=== PATIENT | male | born 1995 | race Caucasian/White ===

== ENCOUNTER 2016-05-21 00:14 | Emergency (ER) | payer BC, MEDICAID ==
[2016-05-21 00:24] VITALS: BP 133/94
--- NOTE | 2016-05-21 00:41 | ERNOTE ---
Medical Problem HPI - Narrative Date of Service: 05/21/16 - General Chief Complaint: General Assessment Time Seen by Provider: 05/21/16 00:30 Source: patient Exam Limitations: no limitations - Immun/Allergies/Home Medications Immunizations: IMMUNIZATION HX Immunizations Up to Date Yes History of Influenza Vaccine No Allergies/Adverse Reactions: Allergies cefaclor [From Ceclor] Allergy (Severe, Verified 05/21/16 00:24) Hives Home Medications: HOME MEDICATIONS Ibuprofen [Motrin] 800 mg PO TID PRN 06/21/13 [Last Taken 06/21/13] Amox Tr/Potassium Clavulanate [Augmentin 875-125 Tablet] 875 mg PO Q12H #20 tab 05/21/16 [Last Taken Unknown] - History of Present History Narrative: 20-year-old male complains of a painful lump in his right groin for the past 2 days. He does a lot of heavy lifting at work. No history of hernias. Denies urinary urgency frequency dysuria or urethral discharge. Review of Systems - Review of Systems Constitutional: Present: no symptoms reported EYE: Present: no symptoms reported ENT: Present: no symptoms reported Respiratory: Present: no symptoms reported Cardiology: Present: no symptoms reported Gastrointestinal/Abdominal: Present: no symptoms reported Genitourinary: Present: See HPI Musculoskeletal: Present: no symptoms reported Skin: Present: no symptoms reported Neurological: Present: no symptoms reported Endocrine: Present: no symptoms reported Hematologic/Lymphatic: Present: no symptoms reported Psych: Present: no symptoms reported - Patient's Past Medical History Patient History - Medical: No pertinent hx Patient History - Cancer: No Hx of Cancer Patient History - Surgical Procedures: Ear Tubes - Social History Living Situations: home Smoking Status: Current every day smoker Patient requests Smoking Cessation Consult: No Initiate information on Smoking Cessation: No Alcohol Use: none Drug Use: none Physical Exam - Physical Exam General Appearance: Present: wd/wn, alert, no apparent distress Eye Exam: Normal inspection: bilateral, PERRL: bilateral Ears, Nose, Throat: Present: normal ENT inspection, hearing grossly normal, normal pharynx Neck: Present: normal inspection, nontender Respiratory: Present: no respiratory distress, normal breath sounds, no accessory muscle use, chest nontender, lungs clear Cardiovascular/Chest: Present: regular rate, rhythm, no murmur, normal peripheral pulses Gastrointestinal/Abdominal: Present: normal bowel sounds, nontender, nondistended, soft, no organomegaly Rectal Exam: Present: deferred Male Genitals Exam: Present: normal genitalia, no hernia - digital exam reveals no hernia. , other - firm tender mass, probable early abscess vs node right upper inguinal area Back Exam: Present: normal inspection, normal range of motion, no CVA tenderness , no vertebral tenderness Extremity Exam: Present: normal inspection, non-tender, no edema, normal range of motion Neurological Exam: Present: alert, oriented, normal mood/affect, no motor/ sensory deficits Skin Exam: Present: normal color, warm/dry Lymphatic Exam: Present: no adenopathy ED Progress - Vital Signs Vital Signs: Vital Signs 05/21/16 00:20 Temperature 37 C Pulse Rate 87 Respiratory 20 Rate Blood Pressure 133/94 O2 Sat by Pulse 98 Oximetry - Progress/Reassessment Chief Complaint: General Assessment Plan - Plan Plan: This appears to be an early inguinal abscess versus infected node on the right side. It is firm and not flutuant. We'll treat with oral antibiotics and compresses and have him follow-up with his doctor in a couple days Departure - Departure Clinical Impression: Inguinal abscess Disposition: Home self-care Condition: Fair Instructions: Abscess, [id number] Additional Instructions: Apply warm compresses to the affected area as often as possible. Follow-up with your doctor in a couple days Ibuprofen for pain Referrals: Kyree Mcbride MD [Primary Care Provider] - Prescriptions: Amox Tr/Potassium Clavulanate [Augmentin 875-125 Tablet] 875 mg PO Q12H #20 tab
[2016-05-21] MEDS ORDERED: oxyCODONE HCL/ACETAMINOPHEN 1 TAB TABLET PO ONE (00:42)
[2016-05-21] MEDS ORDERED: AMOX TR/POTASSIUM CLAVULANATE 875 MG TABLET PO ONE (00:42)
[2016-05-21] MEDS ORDERED: AMOX TR/POTASSIUM CLAVULANATE 875 MG TABLET ONE (00:44)
[2016-05-21] MEDS ORDERED: oxyCODONE HCL/ACETAMINOPHEN 1 TAB TABLET ONE (00:44)
== END 2016-05-21 00:55 | disposition home or self-care (01) ==
LOC: ER 00:14
DX: L02.214 Cutaneous abscess of groin (principal); F17.210 Nicotine dependence, cigarettes, uncomplicated